=== PATIENT | female | born 1945 | race Caucasian/White ===

== ENCOUNTER 2018-09-07 11:00 | Observation (INO) ==
--- NOTE | 2018-09-07 11:04 | Emergency Department Note ---
Disposition Clinical Impression: Acute renal insufficiency, Hypoxia Upper respiratory infection Qualifiers: URI type: unspecified URI Qualified Code(s): J06.9 - Acute upper respiratory infection, unspecified Disposition: Admitted As Inpatient Condition: Fair Referrals: Dwayne Win CNP [Primary Care Provider] - Forms: ED Satisfaction Letter URI/Sore Throat HPI - General Chief Complaint: ED Upper Respiratory Infection Stated Complaint: productive cough, losing her voice Time Seen by Provider: 09/07/18 11:04 Source: patient, family Mode of arrival: private vehicle Limitations: no limitations Nursing Notes Reviewed: Yes Vital Signs Reviewed: Yes - History of Present Illness HPI Narrative: Patient relates that she has been feeling sick for about a week. She has had increasing cough with some yellow phlegm and chills. She states she has generalized malaise and soreness with coughing. She is generalized weakness such that she has not had much to eat for 2 days is mainly been laying in bed. She has had exposure to family members who have upper respiratory infection as well as fluid in the last week. She was seen by primary care provider 2 days ago and started on Augmentin. She is not having abdominal pain, vomiting or diarrhea. She denies chest pain beyond soreness with coughing. She is not having headache, sore throat, neck pain or any alteration in mentation. She is feeling increasing dyspnea and was saturating 88% on room air on arrival. Patient denies any history of ongoing respiratory trouble or any history of home oxygen. Pt Subjective Complaint: cough, flu symptoms Onset (ago): day(s) Duration: gradually worsening Severity: moderate, severe Improves with: nothing Worsens with: exertion If sputum, description: yellow Context: sick contacts, multiple patients with similar complaints Associated symptoms: Reports: chills, voice changes, myalgias, cough, shortness of breath. Denies: fever, diaphoresis, headache, rhinorrhea, nasal congestion, sore throat, stiff neck, chest pain, abdominal pain, nausea, vomiting, diarrhea, dysuria, rash, epistaxis, ear pain Treatments prior to arrival: antibiotics, other healthcare encounter for this problem - Related Data Home Medications Medication Instructions Recorded Confirmed CloNIDine HCl 0.3 mg PO BID 04/28/15 10/30/17 Insulin ASPART [NovoLOG] 38 unit SQ TIDWM PRN 04/28/15 07/12/17 Insulin Glargine,Hum.rec.anlog 40 unit SQ BID 04/28/15 10/30/17 [Lantus Solostar] Lisinopril [Zestril] 20 mg PO DAILY 01/12/16 10/30/17 metFORMIN [Glucophage] 500 mg PO BIDWM 01/12/16 10/30/17 Linagliptin [Tradjenta] 5 mg PO DAILY 07/12/17 10/30/17 Rosuvastatin [Crestor] 40 mg PO HS 07/12/17 10/30/17 Aspirin [Lo-Dose Aspirin EC] 81 mg PO QAM 10/30/17 10/30/17 Previous Rx's Medication Instructions Recorded Fluticasone Propionate Nasal 1 spray NS 1-2XD #1 bottle 05/02/16 [Flonase] Cetirizine HCl [Zyrtec] 10 mg PO DAILY PRN 30 Days capsule 07/14/17 Esomeprazole Magnesium [Nexium] 40 mg PO QDPC PRN #0 07/14/17 Magnesium Oxide [Magnesium] 400 mg PO DAILY #15 tablet 07/14/17 Metoprolol [Lopressor] 75 mg PO Q12H #90 tablet 07/14/17 Potassium Chloride [K-Tab ER] 10 meq PO DAILY #15 tablet.er 07/14/17 cloNIDine HCl [CloNIDine HCl] 0.2 mg PO BID #60 tablet 07/14/17 Ondansetron ODT [Zofran ODT] 4 mg PO Q8HR #10 tab.rapdis 10/30/17 Allergies Allergy/AdvReac Type Severity Reaction Status Date / Time NSAIDS (Non-Steroidal Allergy Hives Verified 09/07/18 11:02 Anti-Inflamma pentazocine [From Talwin] Allergy Hives Verified 09/07/18 11:02 Sulfa (Sulfonamide Allergy Hives Verified 09/07/18 11:02 Antibiotics) All systems ED: reviewed and negative except as stated. 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 - Social History Smoking Status: Never smoker Alcohol use: Reports: none Drug use: Reports: none Physical Exam - General Limitations: no limitations General appearance: alert, in no apparent distress - Head Head exam: atraumatic, normocephalic, normal inspection - Eye Eye exam: Present: normal appearance, PERRL, EOMI - ENT ENT exam: normal exam, normal oropharynx, mucous membranes moist - Neck Neck exam: Present: normal inspection, full ROM, trachea midline - Chest Chest inspection: Present: normal inspection, symmetric chest wall rise - Respiratory Respiratory exam: Present: wheezes, prolonged expiratory phase. Absent: respiratory distress, accessory muscle use - Cardiovascular Cardiovascular exam: Present: regular rate, normal rhythm, normal heart sounds - Abdominal Exam Abdominal exam: Present: soft, Non-Tender, normal bowel sounds. Absent: tenderness, distention, guarding, rebound, rigidity - Extremities Exam Extremities exam: Present: normal inspection, full ROM, normal capillary refill. Absent: tenderness, pedal edema, calf tenderness - Expanded Lower Extremity Exam Neurovascular/Tendon exam: Present: normal capillary refill. Absent: motor deficit, sensory deficit, tendon deficit Gait: not tested/not observed - Neurological Exam Neurological exam: Present: alert, oriented X3 - Psychiatric Psychiatric exam: Present: normal affect, normal mood, anxious - Skin Skin exam: Present: warm, dry, intact, normal color. Absent: diaphoresis, pallor Course Course Narrative: 1200: With return of all testing, the patient is feeling improved after aerosol and a steroid. She is saturating 93-94% on couple liters nasal cannula with a blood pressure 133/56. She does have elevation of white count and a lactic acid of 2.4. Her creatinine is acutely elevated 2.08 consistent with her anorexia and weakness. She will need continuation of hydration, antibiotics, aerosols and recheck of her lactic acid. Page been placed to Dr. Grey for inpatient treatment. Vital Signs Temperature 97.8 F 09/07/18 11:02 Pulse Rate 86 09/07/18 11:02 Respiratory Rate 20 09/07/18 11:02 Blood Pressure 128/83 09/07/18 11:02 O2 Sat by Pulse Oximetry 93 09/07/18 11:02 Temperature 97.8 F 09/07/18 11:02 Pulse Rate 86 09/07/18 11:15 Respiratory Rate 16 09/07/18 11:19 Blood Pressure 169/80 09/07/18 11:15 O2 Sat by Pulse Oximetry 92 09/07/18 11:19 Oxygen Delivery Oxygen Delivery Room Air Upper Respiratory Infection - Differential Diagnosis Differential Diagnosis: Likely: upper respiratory infection, other viral infection, bronchitis, influenza, pneumonia - Lab Data Lab results reviewed: Yes I reviewed the patient's lab results. Lab results narrative: Influenza swab is negative Result diagrams: 09/07/18 11:35 09/07/18 11:35 Lab Results 09/07/18 09/07/18 09/07/18 Range/Units 11:35 11:35 11:35 WBC 14.0 H (4.3-11.1) K/mcL RBC 4.28 (3.82-4.97) M/mcL Hgb 12.8 (11.5-15.4) g/dL Hct 39.2 (35.3-44.9) % MCV 91.6 (83.0-100.0) fL MCH 29.9 (28.0-33.3) pg MCHC 32.7 (31.6-35.5) g/dL RDW 14.6 H (11.5-14.5) % Plt Count 150 (140-400) K/mcL MPV 9.9 (9.4-12.4) fL Immature Gran % 0.2 (0-4) % Seg Neutrophils % 68.2 % Lymphocytes % 23.6 % Monocytes % 7.4 % Eosinophils % 0.3 % Basophils % 0.3 % Neutrophils # 9.6 H (1.6-8.9) K/mcL Lymphocytes # 3.3 (0.6-4.6) K/mcL Monocytes # 1.0 (0.0-1.3) K/mcL Eosinophils # 0.0 (0.0-0.6) K/mcL Basophils # 0.0 (0.0-0.2) K/mcL Sodium 136 (136-145) mEq/L Potassium 4.0 (3.5-5.1) mEq/L Chloride 94 L (98-107) mEq/L Carbon Dioxide 28 (23-29) mEq/L BUN 32 H (8-23) mg/dL Creatinine 2.08 H (0.60-1.20) mg/dL Est GFR ( Amer) 28 L (> 60) Est GFR (Non-Af Amer) 23 L (> 60) BUN/Creatinine Ratio 15 (6-26) Glucose 324 H (70-105) mg/dL Calculated Osmolality 301 H (280-300) Lactic Acid 2.4 H (0.5-2.2) mmol/L Calcium 9.8 (8.6-10.3) mg/dL - Radiology Data Radiology results reviewed: Yes I reviewed the patient's radiology results. Single view chest x-ray is performed. This does not demonstrate evidence for infiltrate, effusion, pneumothorax, foreign body or heart failure. The cardiac silhouette is normal. I do not see abnormality to the osseous structures of the chest. This is on my interpretation.
[2018-09-07] MEDS ORDERED: Ipratropium/Albuterol Neb 3 ML IH ONE ×2 (11:08→12:49)
[2018-09-07] MEDS ORDERED: Azithromycin 500 MG in D5% in Water 250 ML IVPB ONE (11:08)
[2018-09-07] MEDS ORDERED: cefTRIAXone 2,000 MG in 0.9 % Sodium Chloride Mini Bag 100 ML IVPB ONE (11:08)
[2018-09-07] MEDS ORDERED: 0.9 % Sodium Chloride 1,000 ML IVC ONE ×2 (11:08→12:00)
[2018-09-07] MEDS ORDERED: methylPREDNISolone 125 MG/2 ML VIAL IVP ONE (11:08)
[2018-09-07] MEDS ORDERED: Ondansetron 4 MG/2 ML VIAL IVP ONE (11:14)
[2018-09-07 11:43] LABS: Basophils % 0.3 %; Eosinophils % 0.3 %; Hematocrit 39.2 % (35.3-44.9); Hemoglobin 12.8 g/dL (11.5-15.4); Immature Granulocytes % 0.2 % (0-4); Lymphocytes # 3.3 K/mcL (0.6-4.6); Lymphocytes % 23.6 %; Mean Corpuscular HGB Conc 32.7 g/dL (31.6-35.5); Mean Corpuscular Hemoglobin 29.9 pg (28.0-33.3); Mean Corpuscular Volume 91.6 fL (83.0-100.0); Mean Platelet Volume 9.9 fL (9.4-12.4); Monocytes % 7.4 %; Neutrophils # 9.6 K/mcL (1.6-8.9); Platelet Count 150 K/mcL (140-400); Red Blood Count 4.28 M/mcL (3.82-4.97); Red Cell Distribution Width 14.6 % (11.5-14.5); Segmented Neutrophils % 68.2 %
[2018-09-07 11:57] LABS: Calcium 9.8 mg/dL (8.6-10.3)
[2018-09-07] MEDS ORDERED: 0.9 % Sodium Chloride 1,000 ML IVC SCH ×2 (12:00→13:49)
[2018-09-07] MEDS ORDERED: *HR* Promethazine 25 MG/ML VIAL IVP ONE ×3 (12:45→13:49)
[2018-09-07] MEDS ORDERED: *HR* LORazepam 0.5 MG TABLET PO PRN (13:49)
[2018-09-07] MEDS ORDERED: D5% in Water 1,000 ML IVC PRN (13:49)
[2018-09-07] MEDS ORDERED: traMADol 50 MG TABLET PO PRN (13:49)
[2018-09-07] MEDS ORDERED: *HR* Dextrose 50 % in Water (Syg) 50 ML SYRINGE IVP PRN (13:49)
[2018-09-07] MEDS ORDERED: Dextrose Gel 15 GM/37.5 ML TUBE PO PRN ×2 (13:49)
[2018-09-07] MEDS ORDERED: Naloxone 0.4 MG/ML INJ IVP PRN (13:49)
[2018-09-07] MEDS ORDERED: Ipratropium/Albuterol Neb 3 ML IH SCH (16:00)
[2018-09-07] MEDS: Insulin LISPRO 300 UNITS/3 ML VIAL SQ SCH (17:02)
[2018-09-07] MEDS: predniSONE 20 MG TABLET PO SCH (17:02)
--- NOTE | 2018-09-07 20:10 | Internal Med History&Physical ---
Date of Encounter: 09/07/18 Time of Encounter: 19:45 Assessment and Plan (1) Upper respiratory infection Current visit: Yes Status: Acute Suspect viral etiology. Symptomatic treatment will be done. Qualifiers: URI type: unspecified URI Qualified Code(s): J06.9 - Acute upper respiratory infection, unspecified (2) Atrial fibrillation Current visit: Yes Status: Chronic Continue Xarelto. Appears to be in normal sinus rhythm at this time. Qualifiers: Atrial fibrillation type: paroxysmal Qualified Code(s): I48.0 - Paroxysmal atrial fibrillation (3) CKD (chronic kidney disease) stage 3, GFR 30-59 ml/min Current visit: No Status: Chronic Monitor renal indices. (4) Hypertension Current visit: No Status: Chronic Hold lisinopril/HCTZ but continue Lopressor, clonidine, and amlodipine. Qualifiers: Hypertension type: essential hypertension Qualified Code(s): I10 - Essenti al (primary) hypertension (5) Acute renal insufficiency Current visit: Yes Status: Acute Hold lisinopril/HCTZ and give IV fluids. Recheck labs in a.m. (6) DM type 2 (diabetes mellitus, type 2) Current visit: Yes Status: Acute Continue Lantus/Levemir and do Accu-Cheks with SSI. Qualifiers: Diabetes mellitus complication status: with kidney complications Diabetes mellitus complication detail: with chronic kidney disease Chronic kidney disease stage: stage 3 (moderate) Qualified Code(s): E11.22 - Type 2 diabetes mellitus with diabetic chronic kidney disease; N18.3 - Chronic kidney disease, stage 3 (moderate); Z79.4 - FDC (current) use of insulin Internal Medicine - H&P: HPI Chief complaint: Cough, acute renal failure Admitted From: Emergency Dept Plans for Post Hospital Care: Home History of present illness: Ms. Washington is a 73 year old female who came to emergency room stating she had 5-6 day history of cough productive yellow sputum. She had sore throat and hoarseness and occasional sensation of chills. She had 2 episodes of vomiting today. She had seen her PCP 2 days ago and received a prescription for a ntibiotics but did not feel improved. She was evaluated in emergency room and found to have leukocytosis and acute renal failure. She was admitted to [facility] floor for ongoing care needs. Past Med Surg Social Fam HX - Past Medical History Medical history: arthritis, atrial fibrillation, diabetes, hyperlipidemia, hypertension Additional medical history: kidney disease Psychiatric history: anxiety - Past Surgical History Surgical History: no surgical history Additional surgical history: Jun 05 skin cancer removed from left hand - Social History Smoking Status: Never smoker Smokeless Tobacco Status: No Alcohol use: none Drug use: none - Family History Father Living Status: Hx Family Cardiac Disorders: Yes (Heart disease) Hx Family Endocrine Disorder: Yes (DM) Internal Medicine - H&P: Meds Insulin Glargine,Hum.rec.anlog [Lantus Solostar] 42 unit SQ BID 04/28/15 [History] Linagliptin [Tradjenta] 5 mg PO DAILY 07/12/17 [History] Rosuvastatin [Crestor] 40 mg PO HS 07/12/17 [History] Cetirizine HCl [Zyrtec] 10 mg PO DAILY PRN 30 Days capsule 07/14/17 [Rx] Esomeprazole Magnesium [Nexium] 40 mg PO QDPC PRN #0 07/14/17 [Rx] Metoprolol [Lopressor] 75 mg PO Q12H #90 tablet 07/14/17 [Rx] Potassium Chloride [K-Tab ER] 10 meq PO DAILY #15 tablet.er 07/14/17 [Rx] cloNIDine HCl [CloNIDine HCl] 0.2 mg PO BID #60 tablet 07/14/17 [Rx] Aspirin [Lo-Dose Aspirin EC] 81 mg PO QAM 10/30/17 [History] Allopurinol [Zyloprim 100 MG] 100 mg PO DAILY 09/07/18 [History] Amlodipine Besylate 5 mg PO DAILY 09/07/18 [History] Insulin LISPRO [Humalog Kwikpen U-100] 0 unit SQ TID 09/07/18 [History] LORazepam [Ativan] 0.5 mg PO DAILY PRN 09/07/18 [History] Lisinopril-HCTZ 20-12.5 [Prinzide 20-12.5] 1 each PO DAILY 09/07/18 [History] Rivaroxaban [Xarelto] 15 mg PO BID 09/07/18 [History] Tramadol HCl [Ultram] 50 mg PO BID PRN 09/07/18 [History] Allergy/AdvReac Type Severity Reaction Status Date / Time NSAIDS (Non-Steroidal Allergy Hives Verified 09/07/18 11:02 Anti-Inflamma pentazocine [From Talwin] Allergy Hives Verified 09/07/18 11:02 Sulfa (Sulfonamide Allergy Hives Verified 09/07/18 11:02 Antibiotics) All Systems PM: A 10-system review of systems was performed and is negative for pertinent findings except as documented above in the HPI. Review of systems: Gen.: Weight has been stable since the July 2017 [facility] hospitalization at approximately 90 kg. Cardiovascular: She has history of hypertension. She has paroxysmal atrial f ibrillation and is on Xarelto. There is no history of [place] heart failure DVT or pulmonary embolus. Echocardiogram summer showed LVEF of 6065% with mild concentric LVH and no significant valvular abnormalities. Respiratory: She is a lifelong nonsmoker and has no known chronic lung disease GI: She denies disorders of her liver gallbladder or exocrine pancreas : She has chronic kidney disease stage III and follows with a [place] snow technician. She denies other kidney or bladder disorders Neurologic: She denies large distribution strokes or seizures. Endocrine: She was diagnosed with DM 2 approximately 1996. She has hyperlipidemia but denies known thyroid disease. Hematology/oncology: She has had skin cancer removal 2017 from her left dorsal hand area. She denies other internal malignancies or disorders or anemia Psychiatric: She denies anxiety depression or other mental health issues [place] skeletal: She has DJD and gout denies other bone joint or muscle disorders. - Constitutional Vitals: Temp Pulse Resp BP Pulse Ox 98.1 F 86 18 120/62 95 09/07/18 18:35 09/07/18 18:35 09/07/18 18:35 09/07/18 18:35 09/07/18 18:35 Exam: Gen.: She is a well-developed well-nourished female resting comfortably in bed who appears in mild respiratory distress. Her voice is hoarse. HEENT: Head is atraumatic and normocephalic. Eyes: EOMI. There is no scleral icterus. Mouth: Mucosa is moist. Neck: There is no thyromegaly or adenopathy noted. Heart: Regular without murmurs gallops or ectopics Lungs: No wheezes or crackles are heard. Abdomen: Soft and nontender. No masses or guarding are noted. Extremities: There is no cyanosis edema or clubbing noted. Dorsalis pedis and posttibial pulses are 1-2 over 2 bilaterally. Neurologic: Mental status: She is talkative and a good historian. Cranial nerves: Smile is symmetric. Forehead wrinkles bilaterally. Tongue protrudes midline. EOMI. Motor: There is no pronator drift. Cerebellar: Finger to nose is intact bilaterally. Skin: Warm and dry Internal Med - H&P Results - Labs CBC & Chem 7: 09/07/18 11:35 09/07/18 11:35 Labs: Short CBC 09/07/18 Range/Units 11:35 WBC 14.0 H (4.3-11.1) K/mcL Hgb 12.8 (11.5-15.4) g/dL Hct 39.2 (35.3-44.9) % Plt Count 150 (140-400) K/mcL Neutrophils # 9.6 H (1.6-8.9) K/mcL BMP 09/07/18 11:35 Sodium 136 Potassium 4.0 Chloride 94 L Carbon Dioxide 28 BUN 32 H Creatinine 2.08 H Glucose 324 H Calcium 9.8 - Impressions ITS Impressions Chest X-Ray 09/07/18 11:09 IMPRESSION: 1. No active pulmonary disease. D/ / Zion Ya MD / Zion Ya MD Interpreting Provider: Zion Ya MD
[2018-09-07] MEDS: cloNIDine HCl 0.1 MG TABLET PO SCH (20:13)
[2018-09-07] MEDS: Insulin DETEMIR 100 UNIT/ML X5UNITS SQ SCH (20:14)
[2018-09-08 06:01] LABS: Basophils % 0.1 %; Hematocrit 34.5 % (35.3-44.9); Lymphocytes % 17.8 %; Mean Corpuscular HGB Conc 31.9 g/dL (31.6-35.5); Mean Corpuscular Hemoglobin 29.6 pg (28.0-33.3); Mean Platelet Volume 10.7 fL (9.4-12.4); Monocytes # 0.5 K/mcL (0.0-1.3); Monocytes % 4.4 %; Neutrophils # 8.7 K/mcL (1.6-8.9); Platelet Count 134 K/mcL (140-400); Red Blood Count 3.71 M/mcL (3.82-4.97); Red Cell Distribution Width 14.3 % (11.5-14.5); Segmented Neutrophils % 76.7 %
[2018-09-08 06:42] LABS: Albumin 3.1 g/dL (3.5-5.7); Albumin/Globulin Ratio 0.7 (1.1-2.2); Bilirubin,Total 0.3 mg/dL (0.3-1.0); Calcium 8.6 mg/dL (8.6-10.3); Globulin 4.2 g/dL (2.4-3.5); Potassium 4.4 mEq/L (3.5-5.1); Total Protein 7.3 g/dL (6.4-8.9)
[2018-09-08] MEDS: predniSONE 20 MG TABLET PO SCH (08:22)
[2018-09-08] MEDS: amLODIPine 5 MG TABLET PO SCH (08:24)
[2018-09-08] MEDS: *HR* Rivaroxaban 15 MG TABLET PO SCH (08:24)
[2018-09-08] MEDS: cloNIDine HCl 0.1 MG TABLET PO SCH ×2 (08:26→20:02)
[2018-09-08] MEDS: Aspirin Enteric Coated 81 MG Tablet PO SCH (08:26)
[2018-09-08] MEDS: Insulin LISPRO 300 UNITS/3 ML VIAL SQ SCH ×4 (08:27→21:35)
[2018-09-08] MEDS ORDERED: Azithromycin 500 MG in D5% in Water 250 ML IVPB SCH (09:00)
[2018-09-08] MEDS ORDERED: hydroCHLOROthiazide 25 MG TABLET PO SCH (09:00)
[2018-09-08] MEDS ORDERED: Lisinopril 20 MG TABLET PO SCH (09:00)
[2018-09-08] MEDS ORDERED: cefTRIAXone 2,000 MG in 0.9 % Sodium Chloride Mini Bag 100 ML IVPB SCH (09:00)
[2018-09-08] MEDS ORDERED: Lisinopril-HCTZ 20-12.5mg TABLET PO SCH (09:00)
[2018-09-08 10:00] LABS: Estimated Average Glucose 272 mg/dl; Hemoglobin A1C 11.1 %
[2018-09-08] MEDS ORDERED: cefTRIAXone 2,000 MG in Water for inj. (sterile) 20 ML 20 ML IVP SCH (10:00)
--- NOTE | 2018-09-08 10:21 | Internal Med Progress Note ---
Date of Encounter: 09/08/18 Time of Encounter: 10:12 - Assessment and plan (1) Upper respiratory infection Current Visit: Yes Status: Acute Assessment and plan: September 08. Continue Rocephin and Zithromax. Add lactobacillus. Qualifiers: URI type: unspecified URI Qualified Code(s): J06.9 - Acute upper respiratory infection, unspecified (2) Atrial fibrillation Current Visit: Yes Status: Chronic Assessment and plan: September 08. Continue Xarelto and Lopressor. Qualifiers: Atrial fibrillation type: paroxysmal Qualified Code(s): I48.0 - Paroxysmal atrial fibrillation (3) CKD (chronic kidney disease) stage 3, GFR 30-59 ml/min Current Visit: No Status: Chronic Assessment and plan: September 08. BUN and creatinine improved to 35 and 1.68 respectively. Continue present regimen. (4) Hypertension Current Visit: No Status: Chronic Assessment and plan: September 08. Continue Norvasc, clonidine, and Lopressor. Remain off li sinopril/HCTZ. Qualifiers: Hypertension type: essential hypertension Qualified Code(s): I10 - Essential (primary) hypertension (5) Acute renal insufficiency Current Visit: Yes Status: Acute Assessment and plan: September 08. Improved. Continue present regimen. (6) DM type 2 (diabetes mellitus, type 2) Current Visit: Yes Status: Acute Assessment and plan: September 08. Hemoglobin A1c significantly elevated at 11.1%. Increase Levemir/Lantus, start metformin, and continued Tradjenta. Continue Accu-Cheks with SSI. 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 She has no new complaints and feels better. - Constitutional Vitals: Temp Pulse Resp BP Pulse Ox 97.9 F 73 18 130/63 96 09/08/18 06:23 09/08/18 06:23 09/08/18 06:23 09/08/18 06:23 09/08/18 06:23 Exam: She is lying in bed and appears in no acute distress. She has decreased hoarseness. Her affect is bright and cheerful. I reviewed her medications and lab results. Internal Medicine: Result - Labs CBC & Chem 7: 09/08/18 05:31 09/08/18 05:31 Labs: Short CBC 09/07/18 09/08/18 Range/Units 11:35 05:31 WBC 14.0 H 11.4 H (4.3-11.1) K/mcL Hgb 12.8 11.0 L D (11.5-15.4) g/dL Hct 39.2 34.5 L (35.3-44.9) % Plt Count 150 134 L (140-400) K/mcL Neutrophils # 9.6 H 8.7 (1.6-8.9) K/mcL BMP 09/07/18 09/08/18 11:35 05:31 Sodium 136 132 L Potassium 4.0 4.4 Chloride 94 L 98 Carbon Dioxide 28 22 L BUN 32 H 35 H Creatinine 2.08 H 1.68 H Glucose 324 H 624 H* Calcium 9.8 8.6 Liver Function 09/08/18 Range/Units 05:31 Total Bilirubin 0.3 (0.3-1.0) mg/dL AST 13 (13-39) Units/L ALT 9 (7-52) Units/L Alkaline Phosphatase 65 (34-104) Units/L Albumin 3.1 L (3.5-5.7) g/dL - Impressions Impressions Chest X-Ray 09/07/18 11:09 IMPRESSION: 1. No active pulmonary disease. D/ / Zion Ya MD / Zion Ya MD Interpreting Provider: Zion Ya MD Consult Discharge Plan - Plan Referrals: Dwayne Win, FLOOR SERVICE WORKER [employer] [Primary Care Provider] - 1 week
[2018-09-08] MEDS: Azithromycin 250 MG TABLET PO SCH (14:03)
[2018-09-08] MEDS: Insulin DETEMIR 100 UNIT/ML X5UNITS SQ SCH ×2 (14:48→20:02)
[2018-09-08] MEDS: predniSONE 10 MG TABLET PO SCH (16:54)
[2018-09-08] MEDS: *HR* Metformin 500 MG TABLET PO SCH (16:54)
[2018-09-08] MEDS: Lactobacillus 1 EACH CAP.SPRINK PO SCH (20:01)
[2018-09-08] MEDS ORDERED: Dextrose Gel 15 GM/37.5 ML TUBE PO PRN ×2 (20:59)
[2018-09-08] MEDS ORDERED: D5% in Water 1,000 ML IVC PRN (20:59)
[2018-09-08] MEDS ORDERED: *HR* Dextrose 50 % in Water (Syg) 50 ML SYRINGE IVP PRN (20:59)
[2018-09-08] MEDS: Albuterol 2.5 MG/3 ML NEBULIZER IH PRN (22:41)
[2018-09-09] MEDS: Albuterol 2.5 MG/3 ML NEBULIZER IH PRN ×2 (01:24→15:52)
[2018-09-09 05:35] LABS: Basophils % 0.1 %; Hematocrit 32.2 % (35.3-44.9); Hemoglobin 10.5 g/dL (11.5-15.4); Immature Granulocytes % 1.4 % (0-4); Lymphocytes # 2.6 K/mcL (0.6-4.6); Lymphocytes % 18.9 %; Mean Corpuscular HGB Conc 32.6 g/dL (31.6-35.5); Mean Corpuscular Hemoglobin 29.5 pg (28.0-33.3); Mean Corpuscular Volume 90.4 fL (83.0-100.0); Mean Platelet Volume 10.4 fL (9.4-12.4); Monocytes # 0.7 K/mcL (0.0-1.3); Neutrophils # 10.2 K/mcL (1.6-8.9); Platelet Count 167 K/mcL (140-400); Red Blood Count 3.56 M/mcL (3.82-4.97); Red Cell Distribution Width 13.9 % (11.5-14.5); Segmented Neutrophils % 74.6 %
[2018-09-09 05:58] LABS: Calcium 9.1 mg/dL (8.6-10.3); Potassium 4.4 mEq/L (3.5-5.1)
[2018-09-09] MEDS: predniSONE 10 MG TABLET PO SCH ×2 (07:29→16:36)
[2018-09-09] MEDS: *HR* Metformin 500 MG TABLET PO SCH (07:29)
[2018-09-09] MEDS: Insulin LISPRO 300 UNITS/3 ML VIAL SQ SCH ×4 (07:31→21:11)
[2018-09-09] MEDS: *HR* Rivaroxaban 15 MG TABLET PO SCH (08:28)
[2018-09-09] MEDS: Aspirin Enteric Coated 81 MG Tablet PO SCH (08:28)
[2018-09-09] MEDS: Lactobacillus 1 EACH CAP.SPRINK PO SCH ×2 (08:29→21:10)
[2018-09-09] MEDS: Azithromycin 250 MG TABLET PO SCH (08:29)
[2018-09-09] MEDS: amLODIPine 5 MG TABLET PO SCH (08:33)
[2018-09-09] MEDS: cloNIDine HCl 0.1 MG TABLET PO SCH ×2 (08:34→21:10)
[2018-09-09] MEDS: Insulin DETEMIR 100 UNIT/ML X5UNITS SQ SCH ×2 (08:38→21:11)
--- NOTE | 2018-09-09 08:50 | Internal Med Progress Note ---
Date of Encounter: 09/09/18 Time of Encounter: 08:42 - Assessment and plan (1) Upper respiratory infection Current Visit: Yes Status: Acute Assessment and plan: September 08. Continue Rocephin and Zithromax. Add lactobacillus. Qualifiers: URI type: unspecified URI Qualified Code(s): J06.9 - Acute upper respiratory infection, unspecified (2) Atrial fibrillation Current Visit: Yes Status: Chronic Assessment and plan: September 08. Continue Xarelto and Lopressor. Qualifiers: Atrial fibrillation type: paroxysmal Qualified Code(s): I48.0 - Paroxysmal atrial fibrillation (3) CKD (chronic kidney disease) stage 3, GFR 30-59 ml/min Current Visit: No Status: Chronic Assessment and plan: September 08. BUN and creatinine improved to 35 and 1.68 respectively. Continue present regimen. September 09. BUN and creatinine minimally changed at 40 and 1.68 respectively. (4) Hypertension Current Visit: No Status: Chronic Assessment and plan: September 08. Continue Norvasc, clonidine, and Lopressor. Remain off lisinopril/HCTZ. Qualifiers: Hypertension type: essential hypertension Qualified Code(s): I10 - Essential (primary) hypertension (5) Acute renal insufficiency Current Visit: Yes Status: Acute Assessment and plan: September 08. Improved. Continue present regimen. (6) DM type 2 (diabetes mellitus, type 2) Current Visit: Yes Status: Acute Assessment and plan: September 08. Hemoglobin A1c significantly elevated at 11.1%. Increase Levemir/Lantus, start metformin, and continued Tradjenta. Continue Accu-Cheks with SSI. September 09. Blood sugar still elevated. Increase Levemir to 55 units twice a day. 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 She has no new complaints and feels better. September 09. She has no new complaints. She is still very hoarse does not feel improved enough for discharge - Constitutional Vitals: Temp Pulse Resp BP Pulse Ox 97.7 F 56 20 112/49 99 02/09/19 07:24 09/09/18 07:24 09/09/18 07:24 09/09/18 07:24 09/09/18 07:24 Exam: She is sitting in a chair at bedside. Her voice is still quite hoarse. She has minimal expiratory wheezing bilaterally. I reviewed her medications and lab results. Internal Medicine: Result - Labs CBC & Chem 7: 09/09/18 05:25 09/09/18 05:25 Labs: Short CBC 09/09/18 Range/Units 05:25 WBC 13.6 H (4.3-11.1) K/mcL Hgb 10.5 L (11.5-15.4) g/dL Hct 32.2 L (35.3-44.9) % Plt Count 167 (140-400) K/mcL Neutrophils # 10.2 H (1.6-8.9) K/mcL BMP 09/09/18 05:25 Sodium 132 L Potassium 4.4 Chloride 98 Carbon Dioxide 27 BUN 40 H Creatinine 1.68 H Glucose 378 H Calcium 9.1 Consult Discharge Plan - Plan Referrals: Dwayne Win, CUSTOMER SERVICE REPRESENTATIVE [Primary Care Provider] - 1 week
[2018-09-09] MEDS ORDERED: Insulin DETEMIR 100 UNIT/ML X5UNITS SQ SCH (09:00)
[2018-09-09] MEDS ORDERED: Insulin DETEMIR 100 UNIT/ML X5UNITS SQ ONE (09:15)
[2018-09-10 06:50] VITALS: BP 107/47
[2018-09-10] MEDS: predniSONE 10 MG TABLET PO SCH (07:17)
[2018-09-10] MEDS: Insulin LISPRO 300 UNITS/3 ML VIAL SQ SCH (07:18)
[2018-09-10] MEDS: Lactobacillus 1 EACH CAP.SPRINK PO SCH (08:09)
[2018-09-10] MEDS: Aspirin Enteric Coated 81 MG Tablet PO SCH (08:09)
[2018-09-10] MEDS: cloNIDine HCl 0.1 MG TABLET PO SCH (08:09)
[2018-09-10] MEDS: *HR* Rivaroxaban 15 MG TABLET PO SCH (08:11)
[2018-09-10] MEDS: Azithromycin 250 MG TABLET PO SCH (08:11)
[2018-09-10] MEDS: amLODIPine 5 MG TABLET PO SCH (08:12)
[2018-09-10] MEDS: Insulin DETEMIR 100 UNIT/ML X5UNITS SQ SCH (08:54)
--- NOTE | 2018-09-10 10:15 | Discharge Summary ---
Orders not resulted at time of discharge: Pending orders 09/07/18 11:35 Culture,Blood [] Stat Date of Encounter: 09/10/18 Time of Encounter: 09:58 - Discharge Diagnosis (1) Upper respiratory infection Priority: Primary Status: Acute Qualifiers: URI type: unspecified URI Qualified Code(s): J06.9 - Acute upper respiratory infection, unspecified (2) Atrial fibrillation Priority: Secondary Status: Chronic Qualifiers: Atrial fibrillation type: paroxysmal Qualified Code(s): I48.0 - Paroxysmal atrial fibrillation (3) CKD (chronic kidney disease) stage 3, GFR 30-59 ml/min Priority: Secondary Status: Chronic (4) Hypertension Priority: Secondary Status: Chronic Qualifiers: Hypertension type: essential hypertension Qualified Code(s): I10 - Essential (primary) hypertension (5) Acute renal insufficiency Priority: Secondary Status: Acute (6) DM type 2 (diabetes mellitus, type 2) Priority: Secondary Status: Acute Qualifiers: Diabetes mellitus complication status: with kidney complications Diabetes mellitus complication detail: with chronic kidney disease Chronic kidney disease stage: stage 3 (moderate) Qualified Code(s): E11.22 - Type 2 diabetes mellitus with diabetic chronic kidney disease; N18.3 - Chronic kidney disease, stage 3 (moderate); Z79.4 - retirement (current) use of insulin Hospital course: Ms. Washington is a 73 year old female who came to emergency room stating she had 5-6 day history of cough productive yellow sputum. She had sore throat and hoarseness and occasional sensation of chills. She had 2 episodes of vomiting today. She had seen her PCP 2 days ago and received a prescription for antibiotics but did not feel improved. She was evaluated in emergency room and found to have leukocytosis and acute renal failure. She was admitted to [facility] floor for ongoing care needs. Initial orders were written by the emergency room physician. I saw her on September 07 and performed the history and physical. She was started empirically on antibiotics with probiotics and steroids. I suspect the etiology of her URI was viral. She had clinical improvement. There was minimal change in WBC during her hospitalization. She remained afebrile. She will be discharged home but will not receive antibiotics at discharge. Her PCP can follow-up and monitor as needed. Lisinopril/HCTZ was held. Creatinine decreased to 1.68 with estimated GFR rising to 30. Blood pressure remained satisfactory. She will remain off this at discharge. Hemoglobin A1c returned elevated at 11.1%. Lantus/Levemir dose was increased during hospitalization. She will continue higher dose at home at 55 units twice a day. Room air oximetry on day of discharge showed satisfactory oxygenation. Hemoglobin decreased to 10.5 on 09/09/2018 with IV fluid administration. Her PCP can monitor labs order further workup as needed. She will follow with her PCP UZIEL Win CNP within 1 week. - Time Spent with Patient Total time spent providing and/or coordinating discharge services: - Discharge Medications Home Medications: Linagliptin [Tradjenta] 5 mg PO DAILY 07/12/17 [History] Rosuvastatin [Crestor] 40 mg PO HS 07/12/17 [History] Cetirizine HCl [Zyrtec] 10 mg PO DAILY PRN 30 Days capsule 07/14/17 [Rx] Esomeprazole Magnesium [Nexium] 40 mg PO QDPC PRN #0 07/14/17 [Rx] Metoprolol [Lopressor] 75 mg PO Q12H #90 tablet 07/14/17 [Rx] cloNIDine HCl [CloNIDine HCl] 0.2 mg PO BID #60 tablet 07/14/17 [Rx] Aspirin [Lo-Dose Aspirin EC] 81 mg PO QAM 10/30/17 [History] Allopurinol [Zyloprim 100 MG] 100 mg PO DAILY 09/07/18 [History] Amlodipine Besylate 5 mg PO DAILY 09/07/18 [History] Insulin LISPRO [Humalog Kwikpen U-100] 0 unit SQ TID 09/07/18 [History] LORazepam [Ativan] 0.5 mg PO DAILY PRN 09/07/18 [History] Tramadol HCl [Ultram] 50 mg PO BID PRN 09/07/18 [History] Insulin Glargine,Hum.rec.anlog [Lantus Solostar] 55 unit SQ BID #0 09/10/18 [Rx] Rivaroxaban [Xarelto] 15 mg PO DAILY #0 09/10/18 [Rx] Allergies/Adverse Reactions: Allergy/AdvReac Type Severity Reaction Status Date / Time NSAIDS (Non-Steroidal Allergy Hives Verified 09/07/18 11:02 Anti-Inflamma pentazocine [From [place]win] Allergy Hives Verified 09/07/18 11:02 Sulfa (Sulfonamide Allergy Hives Verified 09/07/18 11:02 Antibiotics) Date of admission: 09/07/18 12:38 Primary care physician: Dwayne Win CNP - Constitutional Vitals: Temp Pulse Resp BP Pulse Ox 97.5 F L 55 18 107/47 96 09/10/18 06:44 09/10/18 06:44 09/10/18 06:44 09/10/18 06:44 09/10/18 06:44 - Patient Status Disposition: Home, Self-Care Condition: Fair - Discharge Instructions Follow Up With: Dwayne Win CNP [Primary Care Provider] - 1 week - Diet and Activity Activity: resume usual activities as tolerated Diet: advance to your usual diet
== END 2018-09-10 11:21 | disposition home or self-care (01) ==
LOC: INPPIK 11:00 → EMEROOPIK 11:00 → INPPIK 13:27
PROVIDERS: ADMIT Internal Medicine; ATTEND Internal Medicine